=== PATIENT | male | born 1940 | race Caucasian/White ===

== ENCOUNTER → 2018-04-10 | Outpatient (CLI) | payer MEDICARE ==
--- NOTE | 2018-04-10 09:12 | RAD ---
EXAM: Chest, 2 views. HISTORY: Wheezing. COMPARISON: None. FINDINGS: 2 views of the chest are obtained. There are coarse likely chronic interstitial markings. There is hyperinflation due to inspiratory effort or emphysema. There is no pleural effusion or pneumothorax. The heart is normal in size. IMPRESSION: Coarse likely chronic interstitial markings. No acute pulmonary finding. Electronically signed by: Anum Noe MD (04/10/2018 9:09 AM) [id number]
== END | disposition home or self-care (01) ==
LOC: RAD 08:45
PROVIDERS: ATTEND Family Medicine
DX: R05 Cough (principal); R06.2 Wheezing; Z87.891 Personal history of nicotine dependence
CPT/HCPCS: 71046